=== PATIENT | female | born 2000 | race Asian ===

== ENCOUNTER 2024-10-20 15:14 | Emergency (ER) | payer OTHER ==
[~2024-10-20] VITALS: Ht 157.5 cm; Wt 48.2 kg
[2024-10-20 15:30] LABS: COVID AG,FIA SOURCE NASAL SWAB
[2024-10-20] MEDS: ACETAMINOPHEN 500 MG TABLET PO ONE (15:31)
[2024-10-20] MEDS: IBUPROFEN 600 MG TABLET PO ONE (15:31)
[2024-10-20 15:53] LABS: SARS-COV2 (COVID) ANTIGEN,FIA Negative (Negative)
[2024-10-20 15:54] LABS: INFLUENZA TYPE A NEGATIVE FOR TYPE A (NEGATIVE); INFLUENZA TYPE B NEGATIVE FOR TYPE B (NEGATIVE)
[2024-10-20 16:32] VITALS: BP 118/78; PULSE 90; RESP 18; TEMP 99.3; O2SAT 95
[2024-10-20] MEDS ORDERED: BENZ-227 PO (17:57)
[2024-10-20] MEDS ORDERED: AZIT250T9 PO (17:57)
[2024-10-20] MEDS: AZITHROMYCIN 500 MG TABLET PO ONE (17:59)
[2024-10-20] MEDS: LIDOCAINE/PF 1% 2 ML VIAL IM ONE (17:59)
[2024-10-20] MEDS: CefTRIAXone SODIUM 1 GM/VIAL IM ONE (17:59)
== END 2024-10-20 18:23 | disposition home or self-care (01) ==
LOC: EMS 15:34
DX: J18.9 Pneumonia, unspecified organism (principal); R05.9 Cough, unspecified; R50.9 Fever, unspecified; R09.81 Nasal congestion; Z20.822 Contact with and (suspected) exposure to COVID-19
CPT/HCPCS: 99284; 71045; 87426; 87804; 96372; J0456; J0696; J3490